=== PATIENT | female | born 1980 | race Caucasian/White ===

== ENCOUNTER → 2023-09-09 12:40 | Outpatient (ROUT) | payer MEDICARE, SELFPAY ==
[2023-09-09 13:24] LABS: Add Manual Diff / Slide Review NO; Basophils Absolute Auto 200 /uL (0-100); Basophils Percent Auto 3.6 % (0-2); Eosinophils Absolute Auto 100 /uL (0-450); Eosinophils Percent Auto 2.8 % (2-4); Hematocrit 24.3 % (36-46); Hemoglobin 7.1 g/dL (12.0-16.0); Lymphocytes Absolute Auto 2000 /uL (1100-4500); Lymphocytes Percent Auto 39.6 % (25-40); Mean Corpuscular HGB Conc 29.2 % (30-36); Mean Corpuscular Volume 54.6 fL (80-100); Monocytes Absolute Auto 600 /uL (0-900); Monocytes Percent Auto 11.4 % (3-14); Neutrophils Absolute Auto 2200 /uL (1500-7000); Neutrophils Percent Auto 42.6 % (50-75); Platelet Count 474 X10^3/uL (150-400); Red Blood Cell Count 4.45 X10^6/uL (4.0-5.2); Red Cell Distribution Width 22.5 % (11.6-14.8); White Blood Cell Count 5.1 X10^3/uL (4.5-11.0)
[2023-09-09 13:47] LABS: Hypochromasia 2+; Microcytosis 3+
== END ==
PROVIDERS: PCP Registered Nurse; Visit Provider Registered Nurse
DX: D50.9 Iron deficiency anemia, unspecified (principal)
CPT/HCPCS: 85025

== ENCOUNTER → 2023-09-16 13:44 | Outpatient (CLI) | payer MEDICARE, SELFPAY ==
--- NOTE | 2023-09-16 13:47 | DI.MG.S_ITS ---
BILATERAL DIGITAL SCREENING MAMMOGRAM 3D/2D WITH CAD: 09/16/2023 CLINICAL: Routine screening. Family history of breast cancer. Baseline exam. No prior exams were available for comparison. Both breasts are almost entirely fatty (category a/<25% glandular tissue). Current study was also evaluated with a Computer Aided Detection (CAD) system. No significant masses, calcifications, or other findings are seen in either breast. IMPRESSION: NEGATIVE There is no mammographic evidence of malignancy. A 1 year screening mammogram is recommended. Based on the Tyrer Cuzick model (a risk assessment model) the patient's lifetime risk is 6.5% and her 10 year risk is 1.2%. According to the ACR, ACS, and NCCN guidelines, an annual breast MRI exam along with mammogram is recommended if the patient's lifetime risk is 20% or greater. This exam was interpreted at Station ID: [id number]. NOTE: For mammograms, a report in lay terms will be sent to the patient. Approximately 15% of breast malignancies will not be visualized mammographically. In the management of a palpable breast mass, a negative mammogram must not discourage biopsy of a clinically suspicious lesion. Electronically Signed By: Betty diaz/elie:09/16/2023 16:02:33 letter sent: Normal Exam ACR BI-RADS Category 1: Negative 3341F
--- NOTE | 2023-09-16 13:49 | DI.US.S_ITS ---
PROCEDURE: US THYROID INDICATIONS: THYROTOXICOSIS TECHNIQUE: Real-time scanning was performed of the thyroid gland, with image documentation. COMPARISON: None. FINDINGS: Right: Thyroid lobe measures 5.6 x 2.1 x 2.7 cm, and is homogeneous in echotexture. Left: Thyroid lobe measures 5.7 x 2.4 x 2.0 cm, and is homogenous in echotexture. Isthmus: 5 mm thick. IMPRESSION: Normal sonographic appearance of the thyroid. No nodules. Dictated by: Jose Manuel Vogel M.D. on 09/16/2023 at 16:08 Approved by: Jose Manuel Vogel M.D. on 09/16/2023 at 16:08
== END ==
PROVIDERS: PCP Registered Nurse; Referring Provider Registered Nurse; Visit Provider Registered Nurse
DX: Z12.31 Encounter for screening mammogram for malignant neoplasm of breast (principal); Z80.3 Family history of malignant neoplasm of breast; E05.90 Thyrotoxicosis, unspecified without thyrotoxic crisis or storm
CPT/HCPCS: 76536; 77063; 77067

== ENCOUNTER 2023-09-18 08:31 | Day surgery (SDC) | payer MEDICARE, SELFPAY ==
--- NOTE | 2023-09-18 | PATH_ITS ---
[facility] Accession Number: [id number] No. of containers..02 Tissue . 01 Material submitted: . PART A: gastrointestinal site - GASTRIC BIOPSY PART B: colon - DESCENDING POLYP . 01 Diagnosis: A. STOMACH, BIOPSY: - ANTRAL GASTRIC MUCOSA WITH MODERATE CHRONIC AND MILDLY ACTIVE GASTRITIS. - NO H. PYLORI LIKE ORGANISMS IDENTIFIED (BY THE H/E AND IMMUNOHISTOCHEMICAL STAINED SLIDE SECTIONS). - NO INTESTINAL METAPLASIA, DYSPLASIA OR MALIGNANCY IDENTIFIED. - SEE COMMENT. -- B. COLON, DESCENDING, POLYP BIOPSY: - INFLAMMATORY POLYP AND BENIGN REACTIVE FOLLICULAR LYMPHOID HYPERPLASIA. . - NEGATIVE FOR DYSPLASIA OR CARCINOMA. - SEE COMMENT. -- COMMENT: - H. PYLORI IMMUNOHISTOCHEMICAL STAIN WAS PERFORMED ON PART A AND IS NEGATIVE. - Histologic examination of colon descending polyp part B shows large polypoid colonic mucosa with active inflammation, increased neutrophils among the crypt epithelium, and crypt abscesses, fibrotic lamina propria, and significant increased mixed inflammatory cells within lamina propria. No significant crypt architectural distortion is seen. No viral cytopathic effect, infectious organisms, or granulomas are seen. There are multiple large lymphoid follicles within the lamina propria and sub mucosa with large well demarcated germinal centers. CD3, CD20 highlight normal distribution of T and B cells within the follicular spaces. BCL-6 is positive in geminal centers, BCL-2 is negative in germinal centers, consistent with reactive lymphoid follicular hyperplasia within inflammatory polyp. --- TECHNICAL NOTE: THE IMMUNOHISTOCHEMICAL STAINS REPORTED WERE PERFORMED AT [facility] ([address], [facility] [address]). THEY WERE DEVELOPED AND THEIR PERFORMANCE CHARACTERISTICS DETERMINED BY [facility] THEY HAVE NOT BEEN CLEARED OR APPROVED BY THE [employer], ALTHOUGH SUCH APPROVAL IS NOT REQUIRED FOR ANALYTE-SPECIFIC REAGENTS OF THIS TYPE. TXEse 09/29/2023 [facility] Local . 01 Electronically signed: . Trisha Hogue MD, Pathologist NPI- [id number] . 01 Gross description: . Part A: GASTRIC BIOPSY: Received in formalin is 2 fragment(s) of sherman, soft tissue measuring 0.3 x 0.2 x 0.1 cm to 0.2 x 0.1 x 0.1 cm submitted entirely in 1 cassette(s) Part B: DESCENDING POLYP: Received in formalin is 1 fragment(s) of sherman, soft tissue measuring 0.8 x 0.5 x 0.5 cm which is bisected and submitted entirely in 1 cassette(s) /AAY 09/20/2023 0148 Local . 01 Pathologist provided ICD-10: Z12.11, D50.9 . 01 CPT . 038053, 002401, M44587, C68262 Specimen Comment: A courtesy copy of this report has been sent to [phone] Performed at: 01 [facility] [address] [place] [address], [place], [place] [id number] MD Mario Fernandez MD Phone: [phone]
[2023-09-18] MEDS: LACTATED RINGERS 1,000 ML 42 ML IV (09:05)
[2023-09-18 09:18] VITALS: BP 165/85; PULSE 81; RESP 16; TEMP 36.6; O2SAT 94; BMI 51.7
--- NOTE | 2023-09-18 09:31 | PM.HP.1 ---
History of Present Illness History of Present Illness Date Patient Seen: 09/18/23 Chief complaint: EGD & Colonoscopy w/poss bx's Narrative: 43-year-old woman PMH morbid obesity here for diagnostic EGD and colonoscopy. No abdominal pain residual weight loss nausea vomiting blood per rectum. No previous upper or lower endoscopy. No family history of intestinal malignancy. PFSH Social History household members: none Smoking Status: Never smoker alcohol intake: current Meds Home Medications and Allergies Home Medications Medication Instructions Recorded Confirmed Type atenolol 25 mg tablet 25 mg PO DAILY 09/18/23 09/18/23 History methimazole 10 mg PO DAILY 09/18/23 09/18/23 History Allergies Allergy/AdvReac Type Severity Reaction Status Date / Time amoxicillin Allergy Intermediate Rash Verified 09/18/23 09:08 Exam Vital Signs (past 8 hours): - 09/18/23 09:18 Temperature 97.9 F Pulse Rate 81 Respiratory Rate 16 Blood Pressure 165/85 H Pulse Oximetry 94 Oxygen Delivery Method Room Air Oxygen Delivery Method Room Air Narrative Exam Narrative: General adult man alert oriented no acute distress Chest nonlabored respiration Extremities warm well perfused Assessment & Plan Assessment and plan (1) Anemia: Status: Acute (2) Obesity: Status: Acute Assessment & Plan narrative: 43-year-old woman with microcytic anemia here for diagnostic esophagoduodenoscopy and colonoscopy. Technical details were discussed. Risks, benefits, alternatives explained. Risks including but not limited to myocardial infarction, aspiration, bleeding, pain, missed lesion, incomplete examination, need for further radiographic studies, intestinal injury, and need for major abdominal surgery were discussed. All questions were answered to their satisfaction, and they are in agreement with this plan.
[2023-09-18 10:05] VITALS: BP 140/63; PULSE 83; RESP 22; TEMP 36.4; O2SAT 93
[2023-09-18 10:10] VITALS: BP 132/58; PULSE 79; RESP 14; O2SAT 97
--- NOTE | 2023-09-18 10:13 | P.OP.EGD&C_ITS ---
Operative Date/Time/Diagnoses Date of procedure: 09/18/23 Time of procedure: 10:13 Pre-op diagnosis: Anemia Post-op diagnosis: other (Gastritis, colonic polyp x1) Procedure & Clinicians Study performed: Diagnostic Esophagoduodenoscopy and colonoscopy Same procedure as scheduled: Yes Indications: Microcytic anemia Surgeon: Joshua Puentes Procedure Notes Procedure in detail: The history and physical was performed/updated and the patient is ASA class is 2. The procedure was discussed in detail with the patient. Potential risks complications including infection, bleeding, missed diagnosis, perforation, need for surgery, and were explained. Their questions were answered and informed consent was obtained. Patient placed in left lateral decubitus position. Time out was performed. Procedural sedation was administered by Anesthesia. A bite block was placed. the scope was inserted into the mouth and advanced through the esophagus and into the stomach. The pylorus was intubated and the duodenum was examined to the 2nd portion. The scope was then withdrawn into the stomach and was retroflexed. The stomach was decompressed and scope was withdrawn slowly through the esophagus. FINDINGS -Gastritis. No distinct actively bleeding ulcer. Biopsies performed with forceps. Examination began with a thorough inspection of the perianal area there was no evidence of fissures, fistulae, external hemorrhoids or cutaneous malignancy. The colonoscopy scope was then placed into the anal canal and was advanced to the cecum, which was identified by the ileocecal valve, the appendiceal orifice and the confluence of the taenia. The scope was then slowly withdrawn examining colon thoroughly in all directions, irrigating it of any residual stool. The scope was retroflexed within the rectum The patient tolerated the procedure well. They will be discharged once criteria are met. The prep was of good/excellent quality. The withdrawl time was 7 minutes. FINDINGS * Descending colon polyp 1 cm removed with cold snare * Remainder of the colon is unremarkable Specimen(s): other (Gastric, descending colon polyp) Impression: Colonic polyp and gastritis Post-procedure Plan for aftercare: Start omeprazole 20 mg twice daily x 1 month Follow-up is dependent on pathology findings Disposition: same day surgery
[2023-09-18 10:15] VITALS: BP 143/74; PULSE 79; RESP 17; O2SAT 94
[2023-09-18 10:30] VITALS: BP 143/59; PULSE 78; RESP 17; TEMP 37.2; O2SAT 98
== END 2023-09-18 10:55 | disposition home or self-care (01) ==
PROVIDERS: PCP Registered Nurse; Referring Provider Surgery; Visit Provider Surgery
PROC: 0DJ08ZZ Inspection of Upper Intestinal Tract, Via Natural or Artificial Opening Endoscopic (ICD-10-PCS; CPT 43235; principal; 2023-09-18 09:45)
PROC: 0DJD8ZZ Inspection of Lower Intestinal Tract, Via Natural or Artificial Opening Endoscopic (ICD-10-PCS; CPT 45378; 2023-09-18 09:45)
DX: D64.9 Anemia, unspecified (principal); E66.01 Morbid (severe) obesity due to excess calories; K29.70 Gastritis, unspecified, without bleeding; K29.50 Unspecified chronic gastritis without bleeding; K51.40 Inflammatory polyps of colon without complications
CPT/HCPCS: 45385; 43239

== ENCOUNTER → 2023-09-25 13:14 | Outpatient (CLI) | payer MEDICARE, SELFPAY ==
--- NOTE | 2023-09-25 | DI.ECHO.S_ITS ---
[facility] +---------+ : : [address] : : : : [id number] : : : : Phone: [phone] Echocardiogram Report + + :Name: MART EVANS Study Date: 09/25/2023 Height: 67 in : :[facility] ReadingLocation: Weight: 330 lb : : Gender: Female BSA: 2.5 m2 : :: 1980 Age: 43 yrs BP: 178/78 mmHg: :Reason For Study: Cardiac Murmur : :Ordering Physician: GERMAN, : :MARCELLO Performed By: Tiffany Archibald : :Referring: MARCELLO PORTER : + + Interpretation Summary Uncontrolled systolic blood pressure; normal sinus rhythm. Normal LV size, wall thickness, wall motion and LV systolic function. EF is 65-70%. Mild LA enlargement and mild-moderate RV enlargement. Mildly increased left ventricular outflow track velocity with peak gradient of 24 mm Hg concerning for LVOT obstructions. PA systolic pressure is 70 mm Hg assuming RA pressure of 15 mm Hg. Recommend cardiology consultation. Procedure: A two-dimensional transthoracic echocardiogram with color flow and Doppler was performed. The study quality was technically adequate. There is no prior echocardiogram noted for this patient. The patient was in normal sinus rhythm during the exam. Left Ventricle: The left ventricle is mild-moderately dilated. The left ventricle is hyperdynamic. Left ventricular ejection fraction is estimated to be 70%. The interventricular septum is flattened, consistent with a right ventricular pressure/volume condition. Diastolic parameters suggest probable normal left ventricular diastolic function and normal filling pressures. Right Ventricle: The right ventricle is mild to moderately dilated. The right ventricular systolic function is normal. Atria: The left atrium is moderately dilated. Right atrial size is normal. There is no Doppler evidence for an interatrial shunt. Mitral Valve: The mitral valve is normal. There is no mitral valve stenosis. There is trace mitral regurgitation. Aortic Valve: The aortic valve is trileaflet. The aortic valve opens well. There is no aortic valve stenosis. The peak aortic velocity is 2.46 m/sec. The aortic valve mean gradient is 13 mmHg. There is trace aortic regurgitation. Tricuspid Valve: The tricuspid valve is normal. There is no tricuspid stenosis. There is mild to moderate tricuspid regurgitation. The right ventricular systolic pressure is estimated to be at least 70 mmHg based on an estimated right atrial pressure of 15 mm Hg. Pulmonic Valve: The pulmonic valve is not well visualized. There is no pulmonic valvular stenosis. There is trace pulmonic regurgitation. Great Vessels: The aortic root is normal size. The ascending aorta is normal in size. The pulmonary artery is normal size. The IVC is dilated (diameter is greater than 2.1 cm) and it collapses less than 50% with a sniff. This suggests a high right atrial pressure of 15 mm Hg. Pericardium/ Pleura There is no pericardial effusion. There is no pleural effusion. MMode/2D Measurements & Calculations LVIDd: 5.2 cm LVOT diam: 2.2 cm LVIDs: 3.3 cm Ao root diam: 3.4 cm FS: 37.7 % asc Aorta Diam: 3.4 cm IVSd: 1.1 cm LVPWd: 1.0 cm LV taylor. diameter/BSA (cm/m^2): 2.1 LV sys. diameter/BSA (cm/m^2): 1.3 LA A2 area: 27.9 cm2 RA long axis: 5.7 cm LA A4 area: 26.5 cm2 RA area: 20.2 cm2 LA length (vol): 6.7 cm RA vol: 60.3 ml LA vol: 93.5 ml RA : 24.1 ml/m2 LA vol index: 37.4 ml/m2 IVC diam: 2.9 cm TAPSE: 2.4 cm Doppler Measurements & Calculations Ao V2 max: 245.2 cm/sec LVOT Max Fernando: 155.6 cm/sec Ao V2 mean: 171.5 cm/sec LV V1 max P.7 mmHg Ao max P.0 mmHg LV V1 VTI: 31.2 cm Ao mean P.1 mmHg LAURA(I,D): 2.3 cm2 Ao V2 VTI: 50.7 cm LAURA(V,D): 2.4 cm2 sev ratio: 0.61 LAURA indexed to BSA (cm^2/m^2): 0.93 MV E max fernando: 149.1 cm/sec TR max fernando: 348.0 cm/sec MV A max fernando: 104.1 cm/sec TR max P.6 mmHg MV E/A: 1.4 PA V2 max: 128.4 cm/sec Med Peak E' Fernando: 11.0 cm/sec PA V2 mean: 94.3 cm/sec E/E' med: 13.5 PA mean P.8 mmHg Lat Peak E' Fernando: 12.7 cm/sec PA pr(Accel): 3.6 mmHg E/E' lat: 11.7 E/e' average: 12.6 MV dec time: 0.22 sec SV(ABIMBOLAOT): 117.6 ml Electronically signed by: Francisca Erwin M.D. on Reading Physician:09/26/2023 01:44 AM
== END ==
PROVIDERS: PCP Registered Nurse; Referring Provider Registered Nurse; Visit Provider Registered Nurse
DX: I07.1 Rheumatic tricuspid insufficiency (principal); R01.1 Cardiac murmur, unspecified
CPT/HCPCS: 93306